=== PATIENT | female | born 1935 | race Caucasian/White ===

== ENCOUNTER 2018-07-26 10:42 | Emergency (ER) | payer MEDICARE ==
[~2018-07-26] VITALS: Ht 162.6 cm; Wt 65.8 kg
--- NOTE | 2018-07-26 11:20 | RAD ---
Examination: 2 views of the lumbar spine History: Low back pain Comparison: None available Findings: The lumbar vertebral body heights are maintained. Moderate joint space loss identified in the lumbar spine throughout likely degeneration. Moderate facet degenerative changes identified. Impression: Moderate degenerative changes lumbar spine.
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
[2018-07-26] MEDS ORDERED: KETOROLAC 15 MG/ML VIAL. IM ONE (11:30)
[2018-07-26 11:54] LABS: BILIRUBIN,URINE NEG (NEG); CLARITY,URINE HAZY; COLOR,URINE AMBER; GLUCOSE,URINE NEG (NEG)
[2018-07-26 11:55] LABS: BACTERIA,URINE 0 /HPF (0-FEW); NITRITE,URINE NEG (NEG); SQUAMOUS EPITHELIAL CELL,UR OCC /LPF; UROBILINOGEN,URINE 1 mg/dL (0.2 mg/dL); WBC,URINE RARE /HPF (0-4)
[2018-07-26] MEDS ORDERED: MELO7.5T29 PO (12:01)
[2018-07-26] MEDS ORDERED: ORPH-16 PO (12:01)
[2018-07-26 12:06] VITALS: BP 118/50
== END 2018-07-26 12:07 | disposition home or self-care (01) ==
LOC: ER 10:42
DX: M54.5 Low back pain (principal); E78.00 Pure hypercholesterolemia, unspecified; I10 Essential (primary) hypertension
CPT/HCPCS: 72100; 81001; 96372; 99285; J1885